=== PATIENT | male | born 1990 | race Caucasian/White ===

== ENCOUNTER 2016-12-10 10:37 | Emergency (ER) | payer OTHER ==
[~2016-12-10] VITALS: Ht 175.3 cm; Wt 105.5 kg
[2016-12-10 10:40] VITALS: BP 125/82; PULSE 76; RESP 16; O2SAT 98
--- NOTE | 2016-12-10 11:16 | ED.REPORT ---
HPI-Abd Pain M Under 40 Date of Service Dec 10, 2016 ED Provider: Roddy Oliva Patient is a 26 year old male who presents to the ED complaining of L sided abdominal pain onset 1 week ago. Associated symptoms include nausea and gradually improving diarrhea. He denies vomiting, fevers, chills, hematochezia, dysuria, or any other symptoms. He has been seen at a walk-in clinic and at [facility] since onset. He had an unimpressive CT. Nursing Notes Stated Complaint: ABDOMINAL PAIN Chief Complaint: Male Abdominal Pain Nursing Notes Reviewed: Yes Allergies: Coded Allergies: No Known Allergies (Unverified , 12/10/16) Scheduled PRN Naproxen (Naproxen) 500 Mg Tab 500 MG PO BID PRN PRN For Pain Ondansetron ODT (Zofran ODT) 4 Mg Tablet 4 MG PO Q4H PRN PRN For Nausea General Time Seen by MD: 11:16 Chief Complaint Abdominal pain Hx Obtained From: Patient Arrived By: Walk-in Sudden in Onset?: Yes Onset Occurred: 1 week ago Symptom Duration: Since onset Progression since Onset: Waxes and wanes Location: : LLQ Quality: Painful, Sharp Severity: Current: Moderate Severity: Maximum: Severe Associated with: Reports: Diarrhea, Nausea Pertinent Negative: Pt denies other symptoms Recent Healthcare: Recent doctor visit, Prior workup Past Medical History Past Medical History healthy Past Surgical History pyloric stents at Smoking History Current Every Day Smoker Social History Alcohol Use: Denies alcohol use Other Social History: Ambulatory Status Independent Review of Systems Constitutional: Denies: Chills, Fever GI: Reports: Abdominal pain, Diarrhea, Nausea, Denies: Hematochezia, Vomiting Male: Denies Dysuria Complete sys rev & neg: except as marked. Physical Exam Initial Vital Signs Vital Signs (First) Date Time Temp Pulse Resp B/P Pulse Ox O2 Delivery O2 Flow Rate FiO2 12/10/16 10:40 36.6 76 16 125/82 98 Room Air Initial VS: Reviewed, Vital signs normal Head / Eyes: Atraumatic, Normocephalic Neck: Full range of motion Skin: Warm, Dry Neurologic: Alert, Oriented, Nonfocal Psychiatric: Mood/affect normal, Behavior normal, Normal thought content General/Constitutional: Awake, Alert Respiratory / Chest: Atraumatic, Breath sounds NL, Breath sounds = bilat, No respiratory distress Cardiovascular: Heart rate NL, Regular rhythm, Heart sounds NL Abdomen: Atraumatic, Soft, No guarding, No rebound L sided abdominal tenderness Back: No midline vertebral tend, No CVA tenderness Interpretation & Diagnostics Lab Results Interpretation Result Diagram: 12/10/16 1140 12/10/16 1140 Test 12/10/16 11:40 White Blood Count 12.2th/mm3 (3.8-10.1) Red Blood Count 5.17mil/mm3 (4.40-5.80) Hemoglobin 16.8g/dL (13.8-17.2) Hematocrit 46.7% (41.0-50.0) Mean Corpuscular Volume 90.3fL (81-100) Mean Corpuscular Hemoglobin 32.5pg (27.0-35.0) Mean Corpuscular Hemoglobin Concent 36.0% (32.0-37.0) Red Cell Distribution Width 12.9% (12.3-15.4) Platelet Count 289bil/L (150-400) Neutrophils (%) (Auto) 66.9% (40-74) Lymphocytes (%) (Auto) 24.4% (14-46) Monocytes (%) (Auto) 6.5% (4-12) Eosinophils (%) (Auto) 1.6% (0-5) Basophils (%) (Auto) 0.3% (0-3) Sodium Level 139mEq/L (134-144) Potassium Level 4.4mEq/L (3.5-5.2) Chloride Level 103mEq/L (97-108) Carbon Dioxide Level 19mmol/L (18-29) Blood Urea Nitrogen 14mg/dL (6-20) Creatinine 0.93mg/dL (0.76-1.27) Estimat Glomerular Filtration Rate 106mL/min (>59) Glucose Level 92mg/dL (60-99) Calcium Level 9.3mg/dL (8.5-10.1) Magnesium Level 1.9mg/dL (1.6-2.6) Total Bilirubin 0.4mg/dL (0.0-1.2) Aspartate Amino Transf (AST/SGOT) 29U/L (0-50) Alanine Aminotransferase (ALT/SGPT) 41U/L (0-44) Alkaline Phosphatase 66U/L (25-150) Total Protein 7.2g/dL (6.4-8.4) Albumin 4.5g/dL (3.4-5.0) Lipase 20U/L (13-60) Hold Darling Top Tube Received (Received) Lab Results Interpretation: Upon visit to [facility] one week ago, studies are as follows: Normal CT WBC 17 Re-Eval/Medical Decision Med Decision/Clinical Course Nonspecific abdominal pain with reassuring labs. Patient declines further imaging or genitourinary exam. Feeling somewhat better. Agrees with discharge and will find a primary care. Naproxen and Zofran prescribed. Return and follow-up precautions given Re-Evaluation/Progress #1: Time of Eval: 12:57 )( Re-Eval Abdomen: Soft Re-Evaluation/Progress Note: Rechecked pt. Discussed lab results. Offered CT but pt declined. Explained need for hernia check. Pt declines stating "I don't have a hernia and I don't want you to check." Re-Evaluation/Progress #2: Time of Eval: 13:03 )( Re-Eval Abdomen: Soft Re-Evaluation/Progress Note: Recheck pt. Offered further evaluation but declined. Pt states he will find a PCP and follow up. Discussed plan for discharge. Patient understands and agrees with plan. All questions addressed at this time. Counseled Regarding: Diagnosis, Lab results, Need for follow-up, When/why to return to ED Patient Discharge & Departure Primary Impression: Pain, abdominal, nonspecific Disposition: Home Discharge Condition All VS Reviewed: Yes Condition: Stable Patient Instructions: Acute Abdominal Pain (ED) Additional Instructions: The exact cause of your abdominal pain is unknown however your labs in the ER reassuring. At this point because of your previously normal CT scan, you decline a repeat CT. Go to the closest emergency department if you develop recurrent severe abdominal pain, persistent vomiting, bloody stools, lethargy, fever or other concerns. Follow up with a primary care doctor for further evaluation in your area to help further delineate the cause of your symptoms. Take Naproxen and Zofran as needed. Scribe Attestation Portions of this note were transcribed by Truong Luevano. I, Dr. Oliva personally performed the history, physical exam and medical decision-making; I reviewed and confirmed the accuracy of the information in the transcribed note. Signed by: Hollis Beavers, 12/10/16 Roddy Oliva DO Dec 10, 2016 11:16 TRUONG LUEVANO Dec 10, 2016 11:35
[2016-12-10 11:55] LABS: BASOPHILS % (AUTO) 0.3 % (0-3); EOSINOPHILS % (AUTO) 1.6 % (0-5); MONOCYTES % (AUTO) 6.5 % (4-12); Mean Corpuscular Hemoglobin 32.5 pg (27.0-35.0); Mean Corpuscular Volume 90.3 fL (81-100); NEUTROPHILS % (AUTO) 66.9 % (40-74); Platelet Count 289 bil/L (150-400)
[2016-12-10 12:19] LABS: Magnesium 1.9 mg/dL (1.6-2.6)
[2016-12-10] MEDS ORDERED: NPR500T PO (13:10)
[2016-12-10] MEDS ORDERED: ONDA4TAB9 PO (13:10)
[2016-12-10 13:21] VITALS: BP 118/80; PULSE 67; RESP 18; O2SAT 97
== END 2016-12-10 13:24 | disposition home or self-care (01) ==
LOC: SED 10:37
DX: R10.32 Left lower quadrant pain (principal); R11.0 Nausea; R19.7 Diarrhea, unspecified; F17.200 Nicotine dependence, unspecified, uncomplicated
CPT/HCPCS: 36415; 80053; 83690; 83735; 85025; 96372; 99284; J1885